=== PATIENT | female | born 1995 | race Caucasian/White ===

== ENCOUNTER 2017-12-27 11:01 | Inpatient (IN) | payer MEDICAID ==
--- NOTE | 2017-12-27 11:24 | ER Document Report ---
ED General - General Mode of Arrival: Ambulatory Information source: Patient TRAVEL OUTSIDE OF THE [place] IN LAST 30 DAYS: No <MONICA AKBAR - Last Filed: 12/27/17 19:11> <SERENITY BRYSON - Last Filed: 12/27/17 20:38> - General Chief Complaint: Fever Stated Complaint: SEVERE NECK PAIN Time Seen by Provider: 12/27/17 11:14 Notes: 22 y.o female presents to the ED with fever, neck pain, TORRES and abdominal pain. Pt also complains of diarrhea, chills and sweats, muscle cramps and light sensitivity. She also notes that last night she woke up with her LT arm stiff and numb without her lying on it during the night, but reports that it quickly resolved with her placing her arm above her heart. Pt denies any vomiting. Pt states that her sx began yesterday other than her headache which was present before the rest of the sx. She denies ever having sx like this in the past. She denies any Hx of migraines or any other medical issues. (MONICA AKBAR) - Related Data Allergies/Adverse Reactions: No Known Allergies Allergy (Verified 12/27/17 11:08) Past Medical History - General Information source: Patient - Social History Smoking Status: Never Smoker Cigarette use (# per day): No Chew tobacco use (# tins/day): No Smoking Education Provided: No Frequency of alcohol use: None Drug Abuse: None <MONICA AKBAR - Last Filed: 12/27/17 19:11> - Social History Family History: None <SERENITY BRYSON - Last Filed: 12/27/17 20:38> Review of Systems - Review of Systems Constitutional: See HPI, Chills - with also feeling hot, Fever EENT: See HPI, Other - light sensitivity Cardiovascular: No symptoms reported Respiratory: No symptoms reported Gastrointestinal: See HPI, Abdominal pain, Diarrhea. denies: Vomiting Genitourinary: No symptoms reported Female Genitourinary: No symptoms reported Musculoskeletal: See HPI, Muscle stiffness - LT arm - since relieved, Neck pain , Other - muscle cramping Skin: No symptoms reported Hematologic/Lymphatic: No symptoms reported Neurological/Psychological: Headaches, Numbness - LT arm - since relieved -: Yes All other systems reviewed and negative <MONICA AKBAR - Last Filed: 12/27/17 19:11> Physical Exam <MONICA AKBAR - Last Filed: 12/27/17 19:11> <SERENITY BRYSON - Last Filed: 12/27/17 20:38> - Vital signs Vitals: Temp Pulse Resp BP Pulse Ox 103.1 F H 128 H 24 H 118/51 L 99 12/27/17 11:07 12/27/17 11:07 12/27/17 11:07 12/27/17 11:07 12/27/17 11:07 - Notes Notes: PHYSICAL EXAM GENERAL: Alert, interacts well. uncomfortable, tearful and anxious but does not appear in severe distress. HEAD: Normocephalic, atraumatic. EYES: Photophobic wearing glasses. Extraocular movements intact. ENT: Oral mucosa moist, tongue midline. NECK: No rigidity. Able to sit up and bend neck without wincing. Trachea midline. LUNGS: Clear to auscultation bilaterally, no wheezes, rales, or rhonchi. No respiratory distress. HEART: Tachycardic rate and regular rhythm. No murmurs, gallops, or rubs. ABDOMEN: Soft. Diffuse tenderness to palpation, worse in RLQ. Guarding in LUQ. Non-distended. Bowel sounds present in all 4 quadrants. No rebound, or rigidity. BACK: CVA tenderness to percussion. EXTREMITIES: Moves all 4 extremities spontaneously. No edema, radial and dorsalis pedis pulses 2/4 bilaterally. No cyanosis. NEUROLOGICAL: Alert and oriented x3. Normal speech. PSYCH: Normal affect, normal mood. (MONICA AKBAR) Course - Laboratory Result Diagrams: 12/27/17 11:35 12/27/17 11:35 <MONICA AKBAR - Last Filed: 12/27/17 19:11> - Laboratory Result Diagrams: 12/27/17 11:35 12/27/17 11:35 <SERENITY BRYSON - Last Filed: 12/27/17 20:38> - Re-evaluation Re-evalutation: 12/27/17 15:22 CBC has leukocytosis of 15.5, INR is slightly prolonged at 1.22 and I do not know why, venous blood gas does not show any acidosis, chemistries are grossly unremarkable there is an elevated bilirubin total bilirubin at 1.4 however she has no right upper quadrant tenderness to palpation. Lactic acid is normal at 1.0, test is negative, urinalysis shows trace ketones, moderate blood and small leukocyte esterase, this does appear to be contaminated with 31 squamous epithelial cells. I was quite suspicious for meningitis given the headache, fever and neck pain, lumbar puncture was performed and showed 0 WBCs and 0 RBCs. This rules out meningitis. Blood cultures and urine cultures have been obtained. Chest x-ray shows no acute process. Reexamined the patient reveals continuing abdominal tenderness most specifically her right lower quadrant. Patient will have a CT scan of the abdomen and pelvis ordered, oral contrast will be used due to her low BMI. We will also order transvaginal ultrasound at the same time to assess for tubo-ovarian abscess or ovarian torsion. Patient was given empiric antibiotics in the form of Rocephin and vancomycin to cover for possible meningitis. Nursing just came and told me that the patient thinks she is having allergic reaction to the oral contrast. The vancomycin is currently infusing, the patient is flushed and red from her head going down to approximately the level of her chest however there are no wheals, this is not any raised areas, there is no airway compromise. I suspect this is actually red man syndrome from the vancomycin rather than an allergic reaction. Patient will continue to drink the oral contrast, the vancomycin will be decreased by half in infusion rate and she will be given Benadryl. Mother, grandmother and patient are all agreeable to this plan. Gonorrhea and Chlamydia tests are negative. 12/27/17 20:33 Transvaginal ultrasound says there are no palpable abnormalities however they also not able to identify the ovaries. CT scan of the abdomen and pelvis was performed and it does not visualize the appendix, I repeated her abdominal exam and he continues to show right lower quadrant abdominal pain without rebounding but there is a small amount of guarding. I am concerned that they were unable to visualize the appendix in this patient who is continued to be persistently tachycardic even while sleeping and afebrile. Discussed the patient with Dr. Penn who examined her, does not feel she needs to go emergently to the OR now however he agrees to admit her to the hospital for further IV rehydration and repeat abdominal examinations. 12/27/17 20:38 IV Tylenol is being given for the patient's fever and continuing pain. (SERENITY BRYSON) - Vital Signs Vital signs: Temp Pulse Resp BP Pulse Ox 103.1 F H 128 H 22 H 112/91 H 100 12/27/17 19:50 12/27/17 11:07 12/27/17 19:29 12/27/17 16:03 12/27/17 19:29 - Laboratory Laboratory results interpreted by me: 12/27/17 12/27/17 12/27/17 11:35 11:35 11:35 WBC 15.5 H Seg Neutrophils % 86.6 H Lymphocytes % 7.2 L Absolute Neutrophils 13.5 H PT 16.0 H POC Glucose Total Bilirubin 1.4 H Urine Protein Urine Ketones Urine Blood Ur Leukocyte Esterase 12/27/17 12/27/17 11:45 12:41 WBC Seg Neutrophils % Lymphocytes % Absolute Neutrophils PT POC Glucose 114 H Total Bilirubin Urine Protein 30 H Urine Ketones TRACE H Urine Blood MODERATE H Ur Leukocyte Esterase SMALL H Procedures - Lumbar Puncture Lumbar puncture Time completed: 13:36 Consent obtained: Yes <MONICA AKBAR - Last Filed: 12/27/17 19:11> Discharge <MONICA AKBAR - Last Filed: 12/27/17 19:11> - Discharge Admitting Provider: Surgicalist - [facility] Admitted: Telemetry <SERENITY BRYSON - Last Filed: 12/27/17 20:38> - Discharge Clinical Impression: RLQ abdominal pain, Tachycardia, Nausea, vomiting, and diarrhea Condition: Fair Disposition: ADMITTED OBSERVATION Scribe Attestation: 12/27/17 20:36 I personally performed the services described in the documentation, reviewed and edited the documentation which was dictated to the scribe in my presence, and it accurately records my words and actions. (SERENITY BRYSON) Scribe Documentation - Scribe Written by Kit:: Kit Erickson [id number] 12/27/17 acting as scribe for :: Parul <MONICA AKBAR - Last Filed: 12/27/17 19:11>
[2017-12-27] MEDS ORDERED: KETOROLAC TROMETHAMINE INJ/PF 30 MG/1 ML SDV IV ONE (11:32)
[2017-12-27] MEDS ORDERED: NORMAL SALINE 1000 ML 1,000 ML IV ONE (11:48)
[2017-12-27] MEDS ORDERED: VANCOMYCIN HCL INJ 1000 MG VIAL IV ONE (11:48)
[2017-12-27] MEDS ORDERED: CEFTRIAXONE 1 GM/D5W RTU 1 GM/50 ML RTUPB IV ONE (11:48)
[2017-12-27 12:10] LABS: ABSOLUTE LYMPHOCYTES (AUTO) 1.1 10^3/uL (0.5-4.7); ABSOLUTE MONOCYTES (AUTO) 0.9 10^3/uL (0.1-1.4); ABSOLUTE NEUT (AUTO) 13.5 10^3/uL (1.7-8.2); BASOPHILS % (AUTO) 0.2 % (0-2); HEMATOCRIT 36.6 % (36.0-47.0); HEMOGLOBIN 12.4 g/dL (12.0-15.5); LYMPHOCYTES % (AUTO) 7.2 % (13-45); MEAN CORPUSCULAR VOLUME 85 fl (80-97); PLATELET COUNT 258 10^3/uL (150-450); RED BLOOD COUNT 4.29 10^6/uL (3.72-5.28); RED CELL DISTRIBUTION WIDTH 12.7 % (11.5-14.0); SEGMENTED NEUTROPHILS % (AUTO) 86.6 % (42-78); TOTAL CELLS COUNTED % (AUTO) 100 %; WHITE BLOOD COUNT 15.5 10^3/uL (4.0-10.5)
[2017-12-27 12:13] LABS: VENOUS BLOOD BASE EXCESS -1.3 mmol/L; VENOUS BLOOD HCO3 22.9 mmol/L (20-32); VENOUS BLOOD PCO2 36.9 mmHg (35-63); VENOUS BLOOD PH 7.41 (7.30-7.42)
[2017-12-27 12:17] LABS: ALANINE AMINOTRANSFERASE 22 U/L (9-52); ALBUMIN 4.1 g/dL (3.5-5.0); ALKALINE PHOSPHATASE 41 U/L (38-126); ANION GAP 14 (5-19); ASPARTATE AMINO TRANSFERASE 22 U/L (14-36); BILIRUBIN,DIRECT 0.3 mg/dL (0.0-0.4); BILIRUBIN,TOTAL 1.4 mg/dL (0.2-1.3); BLOOD UREA NITROGEN 8 mg/dL (7-20); CALCIUM 9.1 mg/dL (8.4-10.2); CARBON DIOXIDE 22 mmol/L (22-30); CHLORIDE 105 mmol/L (98-107); GLUCOSE 97 mg/dL (75-110); POTASSIUM 3.6 mmol/L (3.6-5.0); SODIUM 141.2 mmol/L (137-145); TOTAL PROTEIN 7.1 g/dL (6.3-8.2)
[2017-12-27] MEDS ORDERED: LIDOCAINE 1% INJ-PF (10 MG/ML) 30 ML SDV INJ ONE (12:36)
[2017-12-27 12:38] LABS: INTERNATIONAL RATION (INR) 1.22
[2017-12-27] MEDS ORDERED: LORAZEPAM INJ 2 MG/1 ML VIAL IV ONE (12:43)
--- NOTE | 2017-12-27 12:59 | RADIOLOGY REPORT (SQ) ---
EXAM DESCRIPTION: CHEST SINGLE VIEW COMPLETED DATE/TIME: 12/27/2017 12:31 pm REASON FOR STUDY: fever COMPARISON: None. EXAM PARAMETERS: NUMBER OF VIEWS: One view. TECHNIQUE: Single frontal radiographic view of the chest acquired. RADIATION DOSE: NA LIMITATIONS: None. FINDINGS: LUNGS AND PLEURA: No opacities, masses or pneumothorax. No pleural effusion. MEDIASTINUM AND HILAR STRUCTURES: No masses. Contour normal. HEART AND VASCULAR STRUCTURES: Heart normal in size. Normal vasculature. BONES: No acute findings. HARDWARE: None in the chest. OTHER: No other significant finding. IMPRESSION: NO ACUTE RADIOGRAPHIC FINDING IN THE CHEST. TECHNICAL DOCUMENTATION: JOB ID: [id number] [employer]- All Rights Reserved Reading location - IP/workstation name: [email or web address]
[2017-12-27 13:03] LABS: APPEARANCE,URINE TURBID; BILIRUBIN,URINE NEGATIVE (NEGATIVE); GLUCOSE, URINE NEGATIVE (NEGATIVE); KETONES,URINE TRACE mg/dL (NEGATIVE); LEUKOCYTE ESTERASE,URINE SMALL (NEGATIVE); NITRITE,URINE NEGATIVE (NEGATIVE); PROTEIN,URINE 30 mg/dL (NEGATIVE); URINE SPECIFIC GRAVITY 1.024; UROBILINOGEN,URINE NEGATIVE mg/dL (<2.0)
[2017-12-27 13:04] LABS: COLOR,URINE DARK YELLOW
[2017-12-27 14:33] LABS: GLUCOSE,CSF 59 mg/dL (40-70); PROTEIN,CSF 30 mg/dL (12-60)
[2017-12-27 14:40] LABS: APPEARANCE ALL TUBES CLEAR; COLOR ALL TUBES COLORLESS; CSF TUBE NUMBER 1
[2017-12-27 14:41] LABS: APPEARANCE ALL TUBES CLEAR; COLOR ALL TUBES COLORLESS; CSF TUBE NUMBER 4; RED BLOOD CELL,CSF 0 /uL (0-10); WHITE BLOOD CELL,CSF 0 /uL (0-5)
[2017-12-27 14:42] LABS: WHITE BLOOD CELL,CSF 0 /uL (0-5)
[2017-12-27 15:06] LABS: CHLAM PCR NOT DETECTED (NOT DETECT); GON PCR NOT DETECTED (NOT DETECT)
[2017-12-27] MEDS ORDERED: DIPHENHYDRAMINE HCL 50 MG/ML VIAL IV ONE (15:21)
--- NOTE | 2017-12-27 18:03 | EKG REPORT ---
SEVERITY:- BORDERLINE ECG - SINUS TACHYCARDIA BORDERLINE T ABNORMALITIES, ANTERIOR LEADS : Confirmed by: David Marlow 27-Dec-2017 18:03:02
--- NOTE | 2017-12-27 18:33 | RADIOLOGY REPORT (SQ) ---
EXAM DESCRIPTION: U/S NON OB PEL TV W/DOPPLER COMPLETED DATE/TIME: 12/27/2017 6:03 pm REASON FOR STUDY: RLQ abd pain and fever, ?TOA LMP 10/11/2017 COMPARISON: None. TECHNIQUE: Dynamic and static grayscale images acquired of the pelvis via transvaginal approach and recorded on PACS. Additional selected color Doppler and spectral images recorded. LIMITATIONS: None. FINDINGS: UTERUS: Contour normal. No mass. ENDOMETRIAL STRIPE: No focal or generalized thickening. No masses. CERVIX: 3.4 cm. No nabothian cysts. RIGHT OVARY AND DOPPLER: Ovary not seen. LEFT OVARY AND DOPPLER: Ovary not seen. FREE FLUID: None noted. OTHER: No other significant finding. MEASUREMENTS: UTERUS: 9 x 4.3 x 5.2 cm. ENDOMETRIAL STRIPE: 1 mm. RIGHT OVARY: Ovary not seen. LEFT OVARY: Ovary not seen. IMPRESSION: No abnormality was seen in the pelvis. The ovaries were not able to be seen. TECHNICAL DOCUMENTATION: JOB ID: [id number] [employer]- All Rights Reserved Reading location - IP/workstation name: [email or web address]
[2017-12-27] MEDS ORDERED: RINGERS SOLUTION,LACTATED 1,000 ML IV ONE ×2 (19:33→20:36)
--- NOTE | 2017-12-27 19:52 | RADIOLOGY REPORT (SQ) ---
EXAM DESCRIPTION: CT ABD/PELVIS WITH IV ORAL COMPLETED DATE/TIME: 12/27/2017 7:28 pm REASON FOR STUDY: RLQ abd pain, fever COMPARISON: None. TECHNIQUE: CT scan of the abdomen and pelvis performed using helical scanning technique with dynamic intravenous contrast injection. No oral contrast. Images reviewed with lung, soft tissue, and bone windows. Reconstructed coronal and sagittal MPR images reviewed. Delayed images for evaluation of the urinary system also acquired. All images stored on PACS. All CT scanners at this facility use dose modulation, iterative reconstruction, and/or weight based d osing when appropriate to reduce radiation dose to as low as reasonably achievable (ALARA). [facility]: Dose Right [facility]: CareDose [facility]: Dose Right [facility]: Teradose 4D [facility]: PowerOasis CONTRAST TYPE AND DOSE: contrast/concentration: Isovue 370.00 mg/ml; Total Contrast Delivered: 43.0 ml; Total Saline Delivered: 15.0 ml RENAL FUNCTION: GFR > 60. RADIATION DOSE: CT Rad equipment meets quality standard of care and radiation dose reduction techniq ues were employed. CTDIvol: 4.8 - 4.8 mGy. DLP: 492 mGy-cm.. LIMITATIONS: None. FINDINGS: LOWER CHEST: No significant findings. No nodules or infiltrates. LIVER: Normal size. No masses. No dilated ducts. SPLEEN: Normal size. No focal lesions. PANCREAS: No masses. No significant calcifications. No adjacent inflammation or peripancreatic fluid collections. Pancreatic duct not dilated. GALLBLADDER: No identified stones by CT criteria. No inflammatory changes to suggest cholecystitis. ADRENAL GLANDS: No significant masses or asymmetry. RIGHT KIDNEY AND URETER: No solid masses. No significant calcifications. No hydronephrosis or hyd roureter. LEFT KIDNEY AND URETER: No solid masses. No significant calcifications. No hydronephrosis or hydr oureter. AORTA AND VESSELS: No aneurysm. No dissection. Renal arteries, SMA, celiac without stenosis. RETROPERITONEUM: No retroperitoneal adenopathy, hemorrhage or masses. BOWEL AND PERITONEAL CAVITY: Mild right colonic wall thickening. Small amount of pelvic free fluid. No evidence for obstruction. APPENDIX: Not visualized. PELVIS: No mass. No free fluid. Normal bladder. ABDOMINAL WALL: No masses. No hernias. BONES: No significant or acute findings. OTHER: No other significant finding. IMPRESSION: Mild right colonic wall thickening. Small amount of pelvic free fluid. Appendix is not identified. TECHNICAL DOCUMENTATION: JOB ID: [id number] [place]-72 Quality ID # [id number]: Final reports with documentation of one or more dose reduction techniques (e.g., Au tomated exposure control, adjustment of the mA and/or kV according to patient size, use of iterative reconstruction technique) 2010 [employer]- All Rights Reserved Reading location - IP/workstation name: [facility]
[2017-12-27] MEDS ORDERED: ACETAMINOPHEN 1,000 MG/100 ML RTUPB IV ONE (19:57)
--- NOTE | 2017-12-27 21:07 | PDOC H&P ---
History of Present Illness Admission Date/PCP: 12/27/17 20:43 Patient complains of: diarrhrea,fever and abdominal pains History of Present Illness: AG SCHWARZ is a 22 year old female who woke up yesterday at 7 am c/o diarrhea. Had diarrhea 20x the whole day with fever and later with abdominal pains. [place] light headed and went to ED today. Denies Nausea/vomiting or anorexia. Very active. She takes care of her own horse and has 2 cats. She ate chicken and no bones the night before onset of symptoms Past Medical History Medical History: None Past Surgical History Past Surgical History: Reports: None Social History Smoking Status: Never Smoker Family History Family History: None Parental Family History Reviewed: Yes Children Family History Reviewed: No Sibling(s) Family History Reviewed.: No Medication/Allergy Allergies/Adverse Reactions: No Known Allergies Allergy (Verified 12/27/17 11:08) Review of Systems Constitutional: PRESENT: fever(s) Eyes: PRESENT: other - no visual/hearing problems Nose, Mouth, and Throat: PRESENT: sore throat - due to mouth being dry Cardiovascular: PRESENT: other - no chest pains/cough Gastrointestinal: PRESENT: abdominal pain, diarrhea Genitourinary: PRESENT: other - no dysuria Neurological: PRESENT: other - felt lightheaded Hematologic/Lymphatic: PRESENT: other - no easy bruising Physical Exam Vital Signs: Temp Pulse Resp BP Pulse Ox 103.1 F H 128 H 22 H 112/91 H 100 12/27/17 19:50 12/27/17 11:07 12/27/17 19:29 12/27/17 16:03 12/27/17 19:29 General appearance: PRESENT: mild distress Head exam: PRESENT: atraumatic Eye exam: PRESENT: conjunctiva pink Mouth exam: PRESENT: dry mucosa Neck exam: PRESENT: full ROM Respiratory exam: PRESENT: clear to auscultation rojelio Cardiovascular exam: PRESENT: tachycardia Pulses: PRESENT: normal radial pulses Vascular exam: PRESENT: normal capillary refill GI/Abdominal exam: PRESENT: soft, tenderness - most at the LUQ and RLQ no rebound tenderness Some voluntary guarding Rectal exam: PRESENT: deferred Extremities exam: PRESENT: full ROM Musculoskeletal exam: PRESENT: ambulatory Neurological exam: PRESENT: alert, oriented to person, oriented to place, oriented to time, oriented to situation Psychiatric exam: PRESENT: appropriate affect Skin exam: PRESENT: normal color, warm Results Impressions: Abdomen/Pelvis CT 12/27/17 00:00 IMPRESSION: Mild right colonic wall thickening. Small amount of pelvic free fluid. Appendix is not identified. Chest X-Ray 12/27/17 11:48 IMPRESSION: NO ACUTE RADIOGRAPHIC FINDING IN THE CHEST. Transvaginal US 12/27/17 14:51 IMPRESSION: No abnormality was seen in the pelvis. The ovaries were not able to be seen. Assessment & Plan - Diagnosis (1) Acute infective gastroenteritis Is this a current diagnosis for this admission?: Yes - Time Time Spent: 30 to 50 Minutes - Inpatient Certification Medical Necessity: Need Close Monitoring Due to Risk of Patient Decompensation, Need For IV Fluids, Need for IV Antibiotics - Plan Summary Plan Summary: Continue Hydration IV antibiotics Serial examination Follow up lab
[2017-12-27] MEDS ORDERED: GLUCAGON,HUMAN RECOMB 1 MG INJ SUBCUT PRN (21:08)
[2017-12-27] MEDS ORDERED: ACETAMINOPHEN 325 MG TABLET PO PRN (21:08)
[2017-12-27] MEDS ORDERED: DEXTROSE 40% GEL 15 GM TUBE PO PRN ×2 (21:08)
[2017-12-27] MEDS ORDERED: DEXTROSE 50%-WATER 25 GM/50 ML DISP.SYRIN IV PRN ×2 (21:08)
[2017-12-27] MEDS: NORMAL SALINE 1000 ML 1,000 ML IV SCH (23:00)
[2017-12-28] MEDS: METRONIDAZOLE 500 MG TABLET PO SCH ×5 (01:23→23:19)
[2017-12-28 05:17] LABS: HEMATOCRIT 33.4 % (36.0-47.0); HEMOGLOBIN 11.3 g/dL (12.0-15.5); MEAN CORPUSCULAR HGB CONC 33.9 g/dL (32.0-36.0); MEAN CORPUSCULAR VOLUME 86 fl (80-97); PLATELET COUNT 190 10^3/uL (150-450); RED BLOOD COUNT 3.91 10^6/uL (3.72-5.28); RED CELL DISTRIBUTION WIDTH 13.2 % (11.5-14.0); WHITE BLOOD COUNT 17.2 10^3/uL (4.0-10.5)
[2017-12-28 05:39] LABS: ALANINE AMINOTRANSFERASE 24 U/L (9-52); ALBUMIN 2.6 g/dL (3.5-5.0); ALKALINE PHOSPHATASE 28 U/L (38-126); ANION GAP 13 (5-19); ASPARTATE AMINO TRANSFERASE 19 U/L (14-36); BILIRUBIN,DIRECT 0.2 mg/dL (0.0-0.4); BILIRUBIN,TOTAL 1.7 mg/dL (0.2-1.3); BLOOD UREA NITROGEN 7 mg/dL (7-20); CALCIUM 7.8 mg/dL (8.4-10.2); CARBON DIOXIDE 20 mmol/L (22-30); CHLORIDE 109 mmol/L (98-107); GLUCOSE 86 mg/dL (75-110); LIPASE 99.5 U/L (23-300); POTASSIUM 3.8 mmol/L (3.6-5.0); SODIUM 141.5 mmol/L (137-145)
--- NOTE | 2017-12-28 06:13 | PDOC H&P ---
History of Present Illness Admission Date/PCP: 12/27/17 20:43 Patient complains of: Fever, abdominal pain nausea vomiting diarrhea History of Present Illness: AG SCHWARZ is a 22 year old female without past medical history who presents 48 hours after the onset of abdominal pain nausea, diarrhea and fever. Diarrhea is without blood. She denies previous episode, infectious contacts, dysuria, diet supplements or suspect foods. No recent antibiotic use. In the emergency room she is found to have hypotension, leukocytosis and ongoing nonbloody diarrhea. CT of the abdomen and pelvis showed colonic thickening, free fluid without visualization of the appendix. She is admitted to surgery for possible appendicitis. Past Medical History Medical History: None Psychiatric Medical History: Denies: Depression Past Surgical History Past Surgical History: Reports: None Social History Information Source: Patient Lives with: Spouse/Significant other Smoking Status: Never Smoker Frequency of Alcohol Use: None Hx Recreational Drug Use: No Drugs: None Hx Prescription Drug Abuse: No - Advance Directive Resuscitation Status: Full Code Family History Family History: None, Hypertension Parental Family History Reviewed: Yes Children Family History Reviewed: Yes Sibling(s) Family History Reviewed.: Yes Medication/Allergy Home Medications: Norgestimate-Ethinyl Estradiol [Mononessa 28 Tablet] 1 tab PO DAILY 12/27/17 Allergies/Adverse Reactions: No Known Allergies Allergy (Verified 12/27/17 11:08) Review of Systems Constitutional: ABSENT: chills, fever(s), headache(s), weight gain, weight loss Eyes: ABSENT: visual disturbances Ears: ABSENT: hearing changes Cardiovascular: ABSENT: chest pain, dyspnea on exertion, edema, orthropnea, palpitations Respiratory: ABSENT: cough, hemoptysis Gastrointestinal: ABSENT: abdominal pain, constipation, diarrhea, hematemesis, hematochezia, nausea, vomiting Genitourinary: ABSENT: dysuria, hematuria Musculoskeletal: ABSENT: joint swelling Integumentary: ABSENT: rash, wounds Neurological: ABSENT: abnormal gait, abnormal speech, confusion, dizziness, focal weakness, syncope Psychiatric: ABSENT: anxiety, depression, homidical ideation, suicidal ideation Endocrine: ABSENT: cold intolerance, heat intolerance, polydipsia, polyuria Hematologic/Lymphatic: ABSENT: easy bleeding, easy bruising Physical Exam Vital Signs: Temp Pulse Resp BP Pulse Ox 98.9 F 103 H 18 86/66 L 100 12/28/17 05:04 12/28/17 05:04 12/28/17 05:04 12/28/17 05:04 12/28/17 05:04 Intake & Output 12/26/17 12/27/17 12/28/17 11:59 11:59 11:59 Intake Total 3200 Balance 3200 General appearance: PRESENT: cooperative, mild distress, well-developed, well- nourished. ABSENT: severe distress Head exam: PRESENT: atraumatic, normocephalic Eye exam: PRESENT: conjunctiva pink, EOMI, PERRLA. ABSENT: scleral icterus Ear exam: PRESENT: normal external ear exam Mouth exam: PRESENT: moist, tongue midline Neck exam: ABSENT: carotid bruit, JVD, lymphadenopathy, thyromegaly Respiratory exam: PRESENT: clear to auscultation rojelio. ABSENT: rales, rhonchi, wheezes Cardiovascular exam: PRESENT: RRR. ABSENT: diastolic murmur, rubs, systolic murmur Pulses: PRESENT: normal dorsalis pedis pul Vascular exam: PRESENT: normal capillary refill GI/Abdominal exam: PRESENT: hyperactive bowel sounds, normal bowel sounds, soft , tenderness - Right lower quadrant with periumbilical pain without guarding. ABSENT: distended, guarding, mass, organolmegaly, rebound Rectal exam: PRESENT: deferred Extremities exam: PRESENT: full ROM. ABSENT: calf tenderness, clubbing, pedal edema Neurological exam: PRESENT: alert, awake, oriented to person, oriented to place , oriented to time, oriented to situation, CN II-XII grossly intact. ABSENT: motor sensory deficit Psychiatric exam: PRESENT: appropriate affect, normal mood. ABSENT: homicidal ideation, suicidal ideation Skin exam: PRESENT: dry, intact, warm. ABSENT: cyanosis, rash Results Laboratory Results: 12/28/17 04:31 12/28/17 04:31 12/28/17 12/28/17 12/28/17 01:45 04:31 04:31 WBC 17.2 H RBC 3.91 Hgb 11.3 L Hct 33.4 L MCV 86 MCH 29.0 MCHC 33.9 RDW 13.2 Plt Count 190 Sodium 141.5 Potassium 3.8 Chloride 109 H Carbon Dioxide 20 L Anion Gap 13 BUN 7 Creatinine 0.60 Est GFR ( Amer) > 60 Est GFR (Non-Af Amer) > 60 Glucose 86 Calcium 7.8 L Total Bilirubin 1.7 H AST 19 ALT 24 Alkaline Phosphatase 28 L Total Protein 5.0 L Albumin 2.6 L Lipase 99.5 Stool for White Cells NO WBCs SEEN Impressions: Abdomen/Pelvis CT 12/27/17 00:00 IMPRESSION: Mild right colonic wall thickening. Small amount of pelvic free fluid. Appendix is not identified. Chest X-Ray 12/27/17 11:48 IMPRESSION: NO ACUTE RADIOGRAPHIC FINDING IN THE CHEST. Transvaginal US 12/27/17 14:51 IMPRESSION: No abnormality was seen in the pelvis. The ovaries were not able to be seen. Assessment & Plan - Diagnosis (1) Acute infective gastroenteritis Is this a current diagnosis for this admission?: Yes Plan: Differential includes appendicitis, I agree with empiric antibiotics will add metronidazole, follow-up ova and parasite. Symptomatic management (2) Hypotension Is this a current diagnosis for this admission?: Yes Plan: IV fluid challenge (3) Nausea, vomiting, and diarrhea Is this a current diagnosis for this admission?: Yes Plan: Symptomatic management - Time Time Spent: 30 to 50 Minutes
[2017-12-28] MEDS: NORMAL SALINE 1000 ML 1,000 ML IV SCH ×4 (06:36→23:19)
[2017-12-28] MEDS ORDERED: CEFTRIAXONE 1 GM/D5W RTU 1 GM/50 ML RTUPB IV SCH (10:00)
[2017-12-28] MEDS ORDERED: CEFTRIAXONE SODIUM 1,000 MG in DEXTROSE 5%-WATER 50 ML IV SCH (10:00)
--- NOTE | 2017-12-28 10:26 | RADIOLOGY REPORT (SQ) ---
EXAM DESCRIPTION: ACUTE ABDOMEN SERIES COMPLETED DATE/TIME: 12/28/2017 10:06 am REASON FOR STUDY: abdominal pains COMPARISON: Chest film 12/27/2017 CT abdomen pelvis 12/27/2017 NUMBER OF VIEWS: Three views. TECHNIQUE: Frontal chest, supine abdomen and upright abdomen radiographic images acquired. LIMITATIONS: None. FINDINGS: CHEST: Lungs clear of infiltrates. Cardiac silhouette size, serenity, bony structures are unr emarkable. FREE AIR: None. No abnormal gas collections. BOWEL GAS PATTERN: Nonobstructive pattern. No dilated loops or air fluid levels. Oral contrast given for CT 12/27/2017 has passed from the GI tract. CALCIFICATIONS: No suspicious calcifications. HARDWARE: None in the abdomen. SOFT TISSUES: No gross mass or suggestion of organomegaly. BONES: No acute fracture. No worrisome bone lesions. OTHER: No other significant finding. IMPRESSION: NO RADIOGRAPHIC EVIDENCE FOR ACUTE ABDOMINAL DISEASE. TECHNICAL DOCUMENTATION: JOB ID: [id number] [employer]- All Rights Reserved Reading location - IP/workstation name: [email or web address]
--- NOTE | 2017-12-28 15:10 | PDOC PROGRESS REPORT ---
Subjective Progress Note for:: 12/28/17 Subjective:: Patient is still feeling lightheaded when she gets up. She is still having right-sided mostly lower abdominal pain. It is improving with current treatments. Her diarrhea frequency is improving. The stool is green liquid. She is hungry and has able been able to drink a little bit without throwing up. No chest pain or difficulty breathing. No fever in the last few hours. Bloody stools or bloody vomitus. Reason For Visit: INFECTIVE GASTROENTERITIS Physical Exam Vital Signs: Temp Pulse Resp BP Pulse Ox 98.2 F 97 16 99/56 L 99 12/28/17 11:05 12/28/17 14:00 12/28/17 11:05 12/28/17 11:05 12/28/17 11:05 Intake & Output 12/27/17 12/28/17 12/29/17 06:59 06:59 06:59 Intake Total 3200 Balance 3200 Weight 49.6 kg General appearance: PRESENT: no acute distress, cooperative Head exam: PRESENT: atraumatic, normocephalic Eye exam: ABSENT: conjunctival injection, scleral icterus Ear exam: PRESENT: normal external ear exam Mouth exam: PRESENT: moist, tongue midline Respiratory exam: PRESENT: clear to auscultation rojelio, unlabored. ABSENT: rales , rhonchi, tachypnea, wheezes Cardiovascular exam: PRESENT: tachycardia. ABSENT: systolic murmur Pulses: PRESENT: normal radial pulses GI/Abdominal exam: PRESENT: hyperactive bowel sounds, soft, tenderness. ABSENT : guarding Extremities exam: ABSENT: joint swelling, pedal edema Neurological exam: PRESENT: alert, awake, oriented to person, oriented to place , oriented to situation, CN II-XII grossly intact Psychiatric exam: PRESENT: anxious, appropriate affect Skin exam: PRESENT: dry, intact, warm Results Laboratory Results: 12/28/17 04:31 12/28/17 04:31 12/28/17 12/28/17 12/28/17 01:45 04:31 04:31 WBC 17.2 H RBC 3.91 Hgb 11.3 L Hct 33.4 L MCV 86 MCH 29.0 MCHC 33.9 RDW 13.2 Plt Count 190 Sodium 141.5 Potassium 3.8 Chloride 109 H Carbon Dioxide 20 L Anion Gap 13 BUN 7 Creatinine 0.60 Est GFR ( Amer) > 60 Est GFR (Non-Af Amer) > 60 Glucose 86 Calcium 7.8 L Total Bilirubin 1.7 H AST 19 ALT 24 Alkaline Phosphatase 28 L Total Protein 5.0 L Albumin 2.6 L Lipase 99.5 Stool for White Cells NO WBCs SEEN Impressions: Abdomen/Pelvis CT 12/27/17 00:00 IMPRESSION: Mild right colonic wall thickening. Small amount of pelvic free fluid. Appendix is not identified. Chest X-Ray 12/27/17 11:48 IMPRESSION: NO ACUTE RADIOGRAPHIC FINDING IN THE CHEST. Transvaginal US 12/27/17 14:51 IMPRESSION: No abnormality was seen in the pelvis. The ovaries were not able to be seen. Acute Abdomen Series 12/28/17 07:00 IMPRESSION: NO RADIOGRAPHIC EVIDENCE FOR ACUTE ABDOMINAL DISEASE. Assessment & Plan - Diagnosis (1) Acute infective gastroenteritis Is this a current diagnosis for this admission?: Yes Plan: Etiology not entirely clear. Patient did eat chicken from a deli earlier in the day before she got sick. It is possible that she has a Salmonella infection. Also possible that this is a viral gastroenteritis. She was started on ceftriaxone and Flagyl and I have change the ceftriaxone to Cipro. We will continue to await stool cultures. Ova and parasites are also pending. C. difficile is negative. Diet has been advanced by surgeon. (2) Abnormal LFTs Is this a current diagnosis for this admission?: Yes Plan: Likely related to acute illness. Will repeat check tomorrow (3) Hypotension Is this a current diagnosis for this admission?: Yes Plan: Secondary to significant diarrhea and vomiting. She continues on IV fluids. Blood pressure is improving. She has also been tachycardic and this is improving. She has some dizziness related to the dehydrated state. All of these symptoms are improving. We will continue IV fluids and monitor carefully. (4) RLQ abdominal pain Is this a current diagnosis for this admission?: Yes Plan: Patient had pelvic ultrasound which was not concerning. Her chlamydia and gonorrhea are negative. negative. Her CT abdomen pelvis shows some right colonic thickening. Appendix is not seen. The patient has been cared for by the surgeon. It is thought that this is unlikely to be appendicitis at this time. - Time Time Spent with patient: 25-34 minutes Medications reviewed and adjusted accordingly: Yes Anticipated discharge: Home - Inpatient Certification Based on my medical assessment, after consideration of the patient's comorbidities, presenting symptoms, or acuity I expect that the services needed warrant INPATIENT care.: Yes I certify that my determination is in accordance with my understanding of Medicare's requirements for reasonable and necessary INPATIENT services [42 CFR 412.3e].: Yes Medical Necessity: Need For IV Fluids, Need for IV Antibiotics - Plan Summary Plan Summary: Will remain in the hospital secondary to continued diarrhea with cultures pending, hypotension and tachycardia. Also her LFTs are abnormal and I would like to recheck these in the morning.
[2017-12-28] MEDS ORDERED: ONDANSETRON HCL INJ/PF 4 MG/2 ML SDV ONE (16:43)
[2017-12-28] MEDS ORDERED: ONDANSETRON HCL INJ/PF 4 MG/2 ML SDV IV PRN (16:56)
--- NOTE | 2017-12-28 18:41 | PDOC PROGRESS REPORT ---
Subjective Progress Note for:: 12/28/17 Subjective:: This is a 22-year-old female with abdominal pain of unknown origin. The patient has experienced increasing abdominal pain, diarrhea, fevers, and chills for the last several days. Patient was admitted for workup and observation. The patient reports that she is feeling better and that she is hungry. Patient denies any chest pain, shortness of breath, nausea, vomiting, orthostasis, dizziness, fatigue, malaise. She does still experience intermittent, crampy abdominal pain. She is still having diarrhea. She denies melena or hematochezia. Reason For Visit: INFECTIVE GASTROENTERITIS Physical Exam Vital Signs: Temp Pulse Resp BP Pulse Ox 98.2 F 96 16 99/56 L 99 12/28/17 11:05 12/28/17 11:05 12/28/17 11:05 12/28/17 11:05 12/28/17 11:05 Intake & Output 12/27/17 12/28/17 12/29/17 06:59 06:59 06:59 Intake Total 3200 Balance 3200 Weight 49.6 kg General appearance: PRESENT: no acute distress Head exam: PRESENT: atraumatic, normocephalic Eye exam: PRESENT: EOMI, PERRLA. ABSENT: scleral icterus Mouth exam: PRESENT: moist, neck supple Neck exam: ABSENT: lymphadenopathy, meningismus, tenderness, thyromegaly, tracheal deviation, tracheostomy Respiratory exam: PRESENT: clear to auscultation rojelio. ABSENT: chest wall tenderness, tachypnea Cardiovascular exam: PRESENT: RRR Pulses: PRESENT: normal radial pulses GI/Abdominal exam: PRESENT: soft, tenderness - Right upper quadrant, right lower quadrant, left upper quadrant, other - No peritonitis. ABSENT: firm, rigid Rectal exam: PRESENT: deferred Extremities exam: ABSENT: calf tenderness, clubbing, pedal edema Musculoskeletal exam: PRESENT: normal inspection Neurological exam: PRESENT: alert, awake, oriented to person, oriented to place , oriented to time, oriented to situation, CN II-XII grossly intact. ABSENT: motor sensory deficit Psychiatric exam: ABSENT: agitated, anxious, depressed Skin exam: ABSENT: cyanosis, erythema, jaundice, pallor Results Laboratory Results: 12/28/17 04:31 12/28/17 04:31 12/28/17 12/28/17 12/28/17 01:45 04:31 04:31 WBC 17.2 H RBC 3.91 Hgb 11.3 L Hct 33.4 L MCV 86 MCH 29.0 MCHC 33.9 RDW 13.2 Plt Count 190 Sodium 141.5 Potassium 3.8 Chloride 109 H Carbon Dioxide 20 L Anion Gap 13 BUN 7 Creatinine 0.60 Est GFR ( Amer) > 60 Est GFR (Non-Af Amer) > 60 Glucose 86 Calcium 7.8 L Total Bilirubin 1.7 H AST 19 ALT 24 Alkaline Phosphatase 28 L Total Protein 5.0 L Albumin 2.6 L Lipase 99.5 Stool for White Cells NO WBCs SEEN Impressions: Abdomen/Pelvis CT 12/27/17 00:00 IMPRESSION: Mild right colonic wall thickening. Small amount of pelvic free fluid. Appendix is not identified. Chest X-Ray 12/27/17 11:48 IMPRESSION: NO ACUTE RADIOGRAPHIC FINDING IN THE CHEST. Transvaginal US 12/27/17 14:51 IMPRESSION: No abnormality was seen in the pelvis. The ovaries were not able to be seen. Acute Abdomen Series 12/28/17 07:00 IMPRESSION: NO RADIOGRAPHIC EVIDENCE FOR ACUTE ABDOMINAL DISEASE. Assessment & Plan - Diagnosis (1) Nausea, vomiting, and diarrhea Is this a current diagnosis for this admission?: Yes (2) RLQ abdominal pain Is this a current diagnosis for this admission?: Yes - Plan Summary Plan Summary: This is a 22-year-old female with abdominal pain and diarrhea. She does have thickening of her ascending colon on CT scan. Her appendix was not well visualized. I believe her spectrum of symptoms to be consistent with infectious gastroenteritis (bacterial or viral). She does not have a classic presentation consistent with appendicitis. I will continue the patient on antibiotics. She is feeling better today, so I will advance her diet. Recheck labs tomorrow. I will follow her abdominal exam closely. If she worsens, surgery may be necessary. Patient is in agreement with the treatment plan.
[2017-12-28] MEDS: CIPROFLOXACIN 400 MG/D5W RTU 400 MG/200 ML RTUPB IV SCH (21:30)
[2017-12-29] MEDS: NORMAL SALINE 1000 ML 1,000 ML IV SCH (05:04)
[2017-12-29] MEDS: METRONIDAZOLE 500 MG TABLET PO SCH ×3 (05:04→18:00)
[2017-12-29 05:11] LABS: ABSOLUTE BASOPHILS # (AUTO) 0.1 10^3/uL (0.0-0.2); ABSOLUTE EOSINOPHILS # (AUTO) 0.1 10^3/uL (0.0-0.6); ABSOLUTE LYMPHOCYTES (AUTO) 2.5 10^3/uL (0.5-4.7); ABSOLUTE MONOCYTES (AUTO) 0.8 10^3/uL (0.1-1.4); ABSOLUTE NEUT (AUTO) 8.1 10^3/uL (1.7-8.2); BASOPHILS % (AUTO) 0.5 % (0-2); EOSINOPHILS % (AUTO) 1.3 % (0-6); HEMATOCRIT 30.9 % (36.0-47.0); HEMOGLOBIN 10.6 g/dL (12.0-15.5); LYMPHOCYTES % (AUTO) 21.5 % (13-45); MEAN CORPUSCULAR HEMOGLOBIN 29.1 pg (27.0-33.4); MEAN CORPUSCULAR HGB CONC 34.5 g/dL (32.0-36.0); MEAN CORPUSCULAR VOLUME 84 fl (80-97); MONOCYTES % (AUTO) 7.1 % (3-13); PLATELET COUNT 188 10^3/uL (150-450); RED BLOOD COUNT 3.66 10^6/uL (3.72-5.28); RED CELL DISTRIBUTION WIDTH 12.9 % (11.5-14.0); SEGMENTED NEUTROPHILS % (AUTO) 69.6 % (42-78); TOTAL CELLS COUNTED % (AUTO) 100 %; WHITE BLOOD COUNT 11.6 10^3/uL (4.0-10.5)
[2017-12-29 06:00] LABS: ALANINE AMINOTRANSFERASE 25 U/L (9-52); ALBUMIN 2.6 g/dL (3.5-5.0); ALKALINE PHOSPHATASE 27 U/L (38-126); ANION GAP 7 (5-19); ASPARTATE AMINO TRANSFERASE 17 U/L (14-36); BILIRUBIN,DIRECT 0.3 mg/dL (0.0-0.4); BILIRUBIN,TOTAL 0.6 mg/dL (0.2-1.3); BLOOD UREA NITROGEN 4 mg/dL (7-20); CALCIUM 8.1 mg/dL (8.4-10.2); CARBON DIOXIDE 22 mmol/L (22-30); CHLORIDE 111 mmol/L (98-107); GLUCOSE 90 mg/dL (75-110); SODIUM 139.5 mmol/L (137-145)
[2017-12-29] MEDS: CIPROFLOXACIN 400 MG/D5W RTU 400 MG/200 ML RTUPB IV SCH ×2 (09:18→21:56)
--- NOTE | 2017-12-29 17:21 | PDOC PROGRESS REPORT ---
Subjective Progress Note for:: 12/29/17 Subjective:: less abdominal pains and diarrhea. Tolerating full liquids well. Reason For Visit: INFECTIVE GASTROENTERITIS Physical Exam Vital Signs: Temp Pulse Resp BP Pulse Ox 98.4 F 66 18 108/69 99 12/29/17 13:05 12/29/17 14:00 12/29/17 13:05 12/29/17 13:05 12/29/17 13:05 Intake & Output 12/28/17 12/29/17 12/30/17 06:59 06:59 06:59 Intake Total 3200 3702 600 Output Total 490 Balance 3200 3212 600 Weight 49.6 kg 42.5 kg Exam: abd is soft,flat with mild diffuse tenderness Results Laboratory Results: 12/29/17 04:19 12/29/17 04:19 12/29/17 12/29/17 04:19 04:19 WBC 11.6 H RBC 3.66 L Hgb 10.6 L Hct 30.9 L MCV 84 MCH 29.1 MCHC 34.5 RDW 12.9 Plt Count 188 Seg Neutrophils % 69.6 Lymphocytes % 21.5 Monocytes % 7.1 Eosinophils % 1.3 Basophils % 0.5 Absolute Neutrophils 8.1 Absolute Lymphocytes 2.5 Absolute Monocytes 0.8 Absolute Eosinophils 0.1 Absolute Basophils 0.1 Sodium 139.5 Potassium 4.0 Chloride 111 H Carbon Dioxide 22 Anion Gap 7 BUN 4 L Creatinine 0.57 Est GFR ( Amer) > 60 Est GFR (Non-Af Amer) > 60 Glucose 90 Calcium 8.1 L Total Bilirubin 0.6 AST 17 ALT 25 Alkaline Phosphatase 27 L Total Protein 5.0 L Albumin 2.6 L Impressions: Abdomen/Pelvis CT 12/27/17 00:00 IMPRESSION: Mild right colonic wall thickening. Small amount of pelvic free fluid. Appendix is not identified. Chest X-Ray 12/27/17 11:48 IMPRESSION: NO ACUTE RADIOGRAPHIC FINDING IN THE CHEST. Transvaginal US 12/27/17 14:51 IMPRESSION: No abnormality was seen in the pelvis. The ovaries were not able to be seen. Acute Abdomen Series 12/28/17 07:00 IMPRESSION: NO RADIOGRAPHIC EVIDENCE FOR ACUTE ABDOMINAL DISEASE. Assessment & Plan - Diagnosis (1) Acute infective gastroenteritis Is this a current diagnosis for this admission?: Yes - Time Time Spent with patient: 15-24 minutes - Plan Summary Plan Summary: She did throw up after taking regular diet. Place back on Full liquids. Continue IV antibiotics. OK to repeat blood work Re-evaluate in am prior to resuming regular diet.
--- NOTE | 2017-12-29 19:00 | PDOC PROGRESS REPORT ---
Subjective Progress Note for:: 12/29/17 Subjective:: Patient ate eggs this morning and then throughout. Now she feels back to normal. States she does not like eggs anyway and that may be why they did not go down well. She would like to try some plain pasta and I think that is fine. She is otherwise no longer having explosive diarrhea. No fevers or chills. No chest pain abdominal pain or difficulty breathing. No fevers. Reason For Visit: INFECTIVE GASTROENTERITIS Physical Exam Vital Signs: Temp Pulse Resp BP Pulse Ox 98.3 F 72 16 115/66 100 12/29/17 17:34 12/29/17 17:34 12/29/17 17:34 12/29/17 17:34 12/29/17 17:34 Intake & Output 12/28/17 12/29/17 12/30/17 06:59 06:59 06:59 Intake Total 3200 3702 1425 Output Total 490 Balance 3200 3212 1425 Weight 49.6 kg 42.5 kg General appearance: PRESENT: no acute distress, cooperative, thin, well- developed, well-nourished Eye exam: ABSENT: conjunctival injection, scleral icterus Mouth exam: PRESENT: moist Respiratory exam: PRESENT: clear to auscultation rojelio, unlabored. ABSENT: rales , rhonchi, wheezes Cardiovascular exam: PRESENT: RRR. ABSENT: systolic murmur Pulses: PRESENT: normal radial pulses GI/Abdominal exam: PRESENT: normal bowel sounds, soft. ABSENT: distended, guarding, tenderness Musculoskeletal exam: PRESENT: normal inspection Neurological exam: PRESENT: alert, awake, oriented to person, oriented to place , oriented to situation, CN II-XII grossly intact Psychiatric exam: PRESENT: appropriate affect. ABSENT: anxious Skin exam: PRESENT: dry, intact, warm Results Laboratory Results: 12/29/17 04:19 12/29/17 04:19 12/29/17 12/29/17 04:19 04:19 WBC 11.6 H RBC 3.66 L Hgb 10.6 L Hct 30.9 L MCV 84 MCH 29.1 MCHC 34.5 RDW 12.9 Plt Count 188 Seg Neutrophils % 69.6 Lymphocytes % 21.5 Monocytes % 7.1 Eosinophils % 1.3 Basophils % 0.5 Absolute Neutrophils 8.1 Absolute Lymphocytes 2.5 Absolute Monocytes 0.8 Absolute Eosinophils 0.1 Absolute Basophils 0.1 Sodium 139.5 Potassium 4.0 Chloride 111 H Carbon Dioxide 22 Anion Gap 7 BUN 4 L Creatinine 0.57 Est GFR ( Amer) > 60 Est GFR (Non-Af Amer) > 60 Glucose 90 Calcium 8.1 L Total Bilirubin 0.6 AST 17 ALT 25 Alkaline Phosphatase 27 L Total Protein 5.0 L Albumin 2.6 L Impressions: Abdomen/Pelvis CT 12/27/17 00:00 IMPRESSION: Mild right colonic wall thickening. Small amount of pelvic free fluid. Appendix is not identified. Chest X-Ray 12/27/17 11:48 IMPRESSION: NO ACUTE RADIOGRAPHIC FINDING IN THE CHEST. Transvaginal US 12/27/17 14:51 IMPRESSION: No abnormality was seen in the pelvis. The ovaries were not able to be seen. Acute Abdomen Series 12/28/17 07:00 IMPRESSION: NO RADIOGRAPHIC EVIDENCE FOR ACUTE ABDOMINAL DISEASE. Assessment & Plan - Diagnosis (1) Acute infective gastroenteritis Is this a current diagnosis for this admission?: Yes Plan: Culture still pending. Patient is feeling significantly better. For now we will continue Cipro and Flagyl until cultures are final. I learned today that her boyfriend works and chicken factories. This has placed Salmonella even higher on my differential. (2) Abnormal LFTs Is this a current diagnosis for this admission?: Yes Plan: Bilirubin improved. (3) Hypotension Is this a current diagnosis for this admission?: Yes Plan: Resolved. Patient no longer dizzy. IV fluids discontinued. (4) RLQ abdominal pain Is this a current diagnosis for this admission?: Yes Plan: Much improved. Continue to monitor. Continue antibiotics. Await cultures. - Time Time Spent with patient: 25-34 minutes Medications reviewed and adjusted accordingly: Yes Anticipated discharge: Home - Inpatient Certification Based on my medical assessment, after consideration of the patient's comorbidities, presenting symptoms, or acuity I expect that the services needed warrant INPATIENT care.: Yes I certify that my determination is in accordance with my understanding of Medicare's requirements for reasonable and necessary INPATIENT services [42 CFR 412.3e].: Yes Medical Necessity: Risk of Complication if Not Cared For in Hospital
[2017-12-30] MEDS: METRONIDAZOLE 500 MG TABLET PO SCH ×2 (00:01→06:33)
[2017-12-30 05:03] LABS: ABSOLUTE EOSINOPHILS # (AUTO) 0.1 10^3/uL (0.0-0.6); ABSOLUTE LYMPHOCYTES (AUTO) 2.4 10^3/uL (0.5-4.7); ABSOLUTE MONOCYTES (AUTO) 0.7 10^3/uL (0.1-1.4); ABSOLUTE NEUT (AUTO) 8.7 10^3/uL (1.7-8.2); BASOPHILS % (AUTO) 0.4 % (0-2); HEMATOCRIT 31.7 % (36.0-47.0); MEAN CORPUSCULAR HEMOGLOBIN 29.5 pg (27.0-33.4); MEAN CORPUSCULAR HGB CONC 34.7 g/dL (32.0-36.0); MEAN CORPUSCULAR VOLUME 85 fl (80-97); MONOCYTES % (AUTO) 5.7 % (3-13); PLATELET COUNT 250 10^3/uL (150-450); RED BLOOD COUNT 3.72 10^6/uL (3.72-5.28); RED CELL DISTRIBUTION WIDTH 12.8 % (11.5-14.0); SEGMENTED NEUTROPHILS % (AUTO) 72.9 % (42-78); TOTAL CELLS COUNTED % (AUTO) 100 %; WHITE BLOOD COUNT 11.9 10^3/uL (4.0-10.5)
[2017-12-30] MEDS ORDERED: CIPROFLOXACIN HCL 500 MG TABLET PO ONE (13:00)
[2017-12-30 14:03] VITALS: BP 85/51
--- NOTE | 2017-12-30 17:59 | PDOC DISCHARGE SUMMARY ---
General - Admit/Disc Date/PCP Admission Date/Primary Care Provider: 12/27/17 20:43 HILDA GRAY MD Discharge Date: 12/30/17 - Discharge Diagnosis (1) RLQ abdominal pain Is this a current diagnosis for this admission?: Yes Summary: It was thought the patient may have an acute appendicitis. She was admitted by the surgeons. Hospitalist consulted. Ultimately the surgeon deemed she did not have acute appendicitis. We treated her with antibiotics as noted in acute infective gastroenteritis, advance diet as she tolerated and discharged in stable condition. She will have follow-up with the surgical clinic and with her primary care/ urgent care clinic in the coming week. She knows to return to medical care with concerning symptoms. (2) Acute infective gastroenteritis Is this a current diagnosis for this admission?: Yes Summary: Pt was admitted for nausea, vomiting and explosive diarrhea that was green in color. She had dehydration and orthostatic hypotension that resolved with resolution of symptoms and with IV fluids. She has a solid BM on day of DC. She was originally on ceftriaxone due to concern for intraabd infection, possibly appy, and flagyl was added. I changed her ceftriaxone to cipro with concern for salmonella due to eating chicken day prior to admit and her boyfriend working in multiple chicken factories given vaccine to the animals. He stool culture was ultimately negative and she was not DCed with ABX. Stool ova and parasites was pending on DC and she will have her Dr call for final results. (3) Abnormal LFTs Is this a current diagnosis for this admission?: Yes Summary: Secondary to acute illness. Resolved to normal for discharge. (4) Hypotension Is this a current diagnosis for this admission?: Yes Summary: Larry to emesis and diarrhea caused by infection most likely. Resolved with IV fluids. - Additional Information Resuscitation Status: Full Code Discharge Diet: As Tolerated, Other (Comments) Discharge Activity: Balance Activity w/Rest Home Medications: Norgestimate-Ethinyl Estradiol [Mononessa 28 Tablet] 1 tab PO DAILY 12/27/17 History of Present Illness History of Present Illness: AG SCHWARZ is a 22 year old woman who woke up yesterday, day prior to admissin, at 7 am c/o diarrhea with nausea and vomiting. Had diarrhea 20x the whole day with fever and later with abdominal pains. [place] light headed and went to ED. Very active. She takes care of her own horse and has 2 cats. She ate chicken and no bones the night before onset of symptoms, her boyfriend works in local chicken factories vaccinating animals. Hospital Course Hospital Course: see hospital course by problem list Physical Exam Vital Signs: Temp Pulse Resp BP Pulse Ox 98.4 F 65 14 85/51 L 100 12/30/17 14:02 12/30/17 14:02 12/30/17 14:02 12/30/17 14:02 12/30/17 14:02 Intake & Output 12/29/17 12/30/17 12/31/17 06:59 06:59 06:59 Intake Total 3702 3055 Output Total 490 Balance 3212 3055 Weight 42.5 kg 42.6 kg General appearance: PRESENT: no acute distress, cooperative, thin Head exam: PRESENT: atraumatic, normocephalic Eye exam: ABSENT: conjunctival injection, scleral icterus Ear exam: PRESENT: normal external ear exam Mouth exam: PRESENT: moist, tongue midline Respiratory exam: PRESENT: clear to auscultation rojelio, unlabored. ABSENT: rales , rhonchi, wheezes Cardiovascular exam: PRESENT: RRR. ABSENT: systolic murmur Pulses: PRESENT: normal radial pulses GI/Abdominal exam: PRESENT: normal bowel sounds, soft. ABSENT: distended, guarding, tenderness Musculoskeletal exam: PRESENT: ambulatory Neurological exam: PRESENT: alert, awake, oriented to person, oriented to place , oriented to situation, CN II-XII grossly intact Psychiatric exam: PRESENT: appropriate affect. ABSENT: anxious Skin exam: PRESENT: dry, intact, warm Results Laboratory Results: 12/30/17 04:26 12/29/17 04:19 12/30/17 04:26 WBC 11.9 H RBC 3.72 Hgb 11.0 L Hct 31.7 L MCV 85 MCH 29.5 MCHC 34.7 RDW 12.8 Plt Count 250 Seg Neutrophils % 72.9 Lymphocytes % 20.0 Monocytes % 5.7 Eosinophils % 1.0 Basophils % 0.4 Absolute Neutrophils 8.7 H Absolute Lymphocytes 2.4 Absolute Monocytes 0.7 Absolute Eosinophils 0.1 Absolute Basophils 0.0 12/28/17 01:45 Stool - Stool - Final Impressions: Abdomen/Pelvis CT 12/27/17 00:00 IMPRESSION: Mild right colonic wall thickening. Small amount of pelvic free fluid. Appendix is not identified. Chest X-Ray 12/27/17 11:48 IMPRESSION: NO ACUTE RADIOGRAPHIC FINDING IN THE CHEST. Transvaginal US 12/27/17 14:51 IMPRESSION: No abnormality was seen in the pelvis. The ovaries were not able to be seen. Acute Abdomen Series 12/28/17 07:00 IMPRESSION: NO RADIOGRAPHIC EVIDENCE FOR ACUTE ABDOMINAL DISEASE. Qualifiers - * PATIENT BEING DISCHARGED WITH ANY OF THE FOLLOWING DIAGNOSIS: No
[2017-12-30] MEDS ORDERED: CIPROFLOXACIN HCL 500 MG TABLET PO SCH (22:00)
== END 2017-12-30 14:20 | disposition home or self-care (01) | DRG 392 ==
LOC: ER 11:01 → OBSVTOIN 20:43 → EH 20:43 → 3W 12-28 00:04
PROVIDERS: ADMIT Surgery; ATTEND Surgery
DX: A09 Infectious gastroenteritis and colitis, unspecified (principal); I95.9 Hypotension, unspecified; R00.0 Tachycardia, unspecified; R94.5 Abnormal results of liver function studies; R10.31 Right lower quadrant pain; R50.9 Fever, unspecified; R51 Headache; L27.0 Generalized skin eruption due to drugs and medicaments taken internally; T36.8X5A Adverse effect of other systemic antibiotics, initial encounter; Y92.230 Patient room in hospital as the place of occurrence of the external cause
CPT/HCPCS: 36415; 71045; 74022; 74177; 76830; 80048; 80053; 80076; 81001; 82803; 82945; 82962; 83605; 83690; 84157; 84703; 85025; 85027; 85610; 87040; 87045; 87070; 87086; 87177; 87205; 87491; 87493; 87591; 89050; 89055; 93005; 93010; 93976; 96375; J0131; J0696; J0744; J1200; J1885; J2060; J2405; J3370; J3490; J7030; J7120

== ENCOUNTER 2018-10-27 18:23 | Emergency (ER) | payer MEDICAID, OTHER ==
--- NOTE | 2018-10-27 21:54 | ER Document Report ---
HPI - HPI Time Seen by Provider: 10/27/18 21:39 Pain Level: 3 Context: Patient is a 23-year-old female who presents the emergency department with a chief complaint of laceration to the top of her head. A hole fell off a 10 roof and fell on top of her head. She stated that she was actually laughing after the incident happened. She denies any loss of consciousness, weakness, headache, numbness or tingling, diplopia, nausea, or vomiting. This happened around 1730 this evening. She is up-to-date on her tetanus shot. - ROS Systems Reviewed and Negative: Yes All other systems reviewed and negative - CONSTITUTIONAL Constitutional: DENIES: Fever - NEURO Neurology: DENIES: Headache, Weakness, Vision blurred, Dizzinesss / Vertigo - REPRODUCTIVE Reproductive: DENIES: : - MUSCULOSKELETAL Musculoskeletal: DENIES: Back Pain, Neck Pain, Swelling - DERM Skin Color: Normal Skin Problems: Laceration - Top of scalp Past Medical History - General Information source: Patient - Social History Smoking Status: Unknown if Ever Smoked Family History: Reviewed & Not Pertinent, Hypertension Renal/ Medical History: Denies: Hx Peritoneal Dialysis Psychiatric Medical History: Denies: Hx Depression Vertical Provider Document - INFECTION CONTROL TRAVEL OUTSIDE OF THE [place] IN LAST 30 DAYS: No - HEENT HEENT: Normocephalic, PERRLA. negative: Atraumatic - Laceration to top of the head. - RESPIRATORY Respiratory: Breath Sounds Normal, No Respiratory Distress - CARDIOVASCULAR Cardiovascular: Regular Rate, Regular Rhythm Pulses: Normal: Radial - MUSCULOSKELETAL/EXTREMETIES Musculoskeletal/Extremeties: FROM, Non-Tender - NEURO Level of Consciousness: Awake, Alert, Appropriate - DERM Integumentary: Warm, Dry, Laceration - Superior portion of head Course - Re-evaluation Re-evalutation: 10/27/18 21:54 Based off patient's physical exam she does not need to be sent for CT of the head. She did not lose any consciousness. Denies neck pain. Shannan will be placed to her head. 10/27/18 22:15 Patient is very apprehensive and nervous about receiving her shannan because lidocaine would not be used. I stated that sutures are normally not used for the scalp on people who have a lot of hair. Her family is at bedside encouraging her to get the shannan placed. Patient finally agreed to have the shannan placed. She tolerated the procedure okay, but did state that she had pain. We ordered her some [place] to help with the pain. She will be sent home with ibuprofen and Tylenol for pain relief at home. She is in agreement with this plan. Verbal discharge instructions were given to the patient. They verbalized understanding. They are stable for discharge. - Vital Signs Vital signs: Temp Pulse Resp BP Pulse Ox 98.5 F 105 H 16 141/91 H 100 10/27/18 18:28 10/27/18 18:28 10/27/18 18:28 10/27/18 18:28 10/27/18 18:28 Procedures - Laceration/Wound Repair Superior head Wound length (cm): 4 Wound's Depth, Shape: Superficial, Linear Wound explored: Clean, No foreign body removed Irrigated w/ Saline (mLs): 20 Wound Repaired With: Shannan Number of Sutures: 4 Layer Closure?: No Post-procedure wound care: Other - Open air Post-procedure NV exam normal: Yes Complications: No Adult Head Front/Back picture: 1 - Laceration Discharge - Discharge Clinical Impression: Laceration of head Qualifiers: Encounter type: initial encounter Location of open wound of head: scalp Foreign body presence: without foreign body Qualified Code(s): S01.01XA - Laceration without foreign body of scalp, initial encounter Condition: Stable Disposition: HOME, SELF-CARE Instructions: Laceration Care ([facility]), Soap Cleansing ([facility]) Additional Instructions: Please return to your primary doctor, the ED, or an urgent care in 7 days for staple removal. Return immediately if you develop spreading redness around the wound, pus from the wound, worsening pain, or a fever of >100.4. Keep the area clean and dry. Wash gently with soap and water twice daily and cover with antibiotic ointment. You can take Tylenol 1000 mg and ibuprofen 600 mg every 6 hours as needed for your pain. Referrals: HILDA GRAY MD [Primary Care Provider] - Follow up as needed
[2018-10-27] MEDS ORDERED: BENZOCAINE/MENTHOL AEROSOL SPRAY 56 ML TOP ONE (21:59)
[2018-10-27] MEDS ORDERED: HYDROCODONE/ACETAMINOPHEN 5-325 MG TABLET PO ONE (22:08)
[2018-10-27 23:23] VITALS: BP 132/90
== END 2018-10-27 23:24 | disposition home or self-care (01) ==
LOC: ER 18:23
DX: S01.01XA Laceration without foreign body of scalp, initial encounter (principal); W20.8XXA Other cause of strike by thrown, projected or falling object, initial encounter
CPT/HCPCS: 99282; J3490